=== PATIENT | male | born 1940 | race Caucasian/White ===

== ENCOUNTER 2020-05-08 13:37 | Inpatient (IN) ==
[2020-05-08] MEDS ORDERED: IOPAMIDOL 100 ML BOTTLE IV ONE (13:38)
[2020-05-08] MEDS ORDERED: LACTATED RINGERS 1,000 ML IV ONE (13:55)
[2020-05-08] MEDS ORDERED: ONDANSETRON 4 MG/2 ML VIAL IV ONE (13:55)
--- NOTE | 2020-05-08 13:59 | Emergency Department Note ---
Trauma HPI General Chief Complaint: Trauma Stated Complaint: Fall from 20 feet Time Seen by Provider: 05/08/20 13:47 Source: patient and RN notes reviewed Mode of arrival: ambulatory Limitations: no limitations History of Present Illness HPI Narrative: Narrative: This patient had a ladder up on a flag pole and he was up and about 20 feet when the ladder slipped and fell and he landed on his left side. He complains of some pain in his left shoulder left rib cage and he appears to be tender under the left rib cage so I am little concerned about a spleen. Patient is slightly diaphoretic. He says he did not hit his head or neck and he does not take a blood thinner other than a baby aspirin. No history of loss of consciousness no injury to the legs he did sustain a small skin slip to the left elbow area MD Complaint: fall and injury Onset (ago): minute(s) Loss of Consciousness: no Location: abdomen and other (Left shoulder and left rib cage) Location - Extremities: Left: shoulder Context: Fall Associated symptoms: Reports denies other symptoms Related Data Home Medications Medication Instructions Recorded Confirmed ascorbic acid (vitamin C) 500 mg 500 mg PO QDAY 11/04/15 02/05/20 tablet aspirin 81 mg chewable tablet 81 mg PO QDAY 11/04/15 02/05/20 cholecalciferol (vitamin D3) 75 3,000 unit PO QDAY 11/04/15 02/05/20 mcg (3,000 unit) tablet multivitamin 1 tab PO QDAY 06/21/18 02/05/20 vitamins A,C,B-tuak-jwkcci 14,320 1 cap PO QDAY cap 05/16/19 02/05/20 unit-226 mg-200 unit capsule Previous Rx's Medication Instructions Recorded hydrochlorothiazide 25 mg tablet 25 mg PO QDAY #90 tab 11/21/19 levothyroxine 100 mcg tablet 100 mcg PO QDAY #90 tab 11/21/19 sildenafil 100 mg tablet 100 mg PO QDAY PRN #30 tab 02/05/20 pravastatin 40 mg tablet 40 mg PO QHS #90 tab 02/28/20 Allergies Allergy/AdvReac Type Severity Reaction Status Date / Time No Known Drug Allergies Allergy Verified 05/08/20 13:40 Review of Systems ROS ROS Narrative: Narrative: All systems ED: reviewed and negative except as stated. PFSH Narrative Patient History Narrative: Narrative: Medical/Surgical/Family History All Active Problems (Updated 05/08/20 @ 16:30 by Girma Alvarado MD) Multiple fractures of ribs (Acute) Arm laceration (Acute) Colon polyp (Chronic) Pharyngitis (Acute) Abnormal TSH (Chronic) Vitamin D deficiency (Chronic) Impaired fasting glucose (Chronic) Erectile dysfunction (Chronic) Dyslipidemia (Chronic) AAA (abdominal aortic aneurysm) (Chronic) Tubular adenoma (Chronic) Epidermal inclusion cyst (Chronic) Hypothyroidism (Chronic) Shoulder pain (Chronic) Obesity (Chronic) Tobacco abuse, in remission (Chronic) Colon polyp (Chronic) Abdominal aortic aneurysm (Acute) Thyroid disease (Chronic) Hyperlipidemia (Chronic) Hypertension, essential (Chronic) Medical History (Updated 05/08/20 @ 16:30 by Girma Alvarado MD) AAA (abdominal aortic aneurysm) (Chronic) Abnormal TSH (Chronic) Colon polyp (Chronic) Colon polyp (Chronic) Dyslipidemia (Chronic) Epidermal inclusion cyst (Chronic) Erectile dysfunction (Chronic) Hyperlipidemia (Chronic) Hypertension, essential (Chronic) Hypothyroidism (Chronic) Impaired fasting glucose (Chronic) Obesity (Chronic) Shoulder pain (Chronic) Thyroid disease (Chronic) Tobacco abuse, in remission (Chronic) Tubular adenoma (Chronic) Vitamin D deficiency (Chronic) Surgical History H/O colonoscopy (Chronic) 2006, 2013 H/O knee surgery (Chronic) 1985 History of cataract extraction with lens replacement (Chronic 12/17/15) History of hernia surgery (Chronic) 1972 History of tonsillectomy (Chronic) Family History Father Arthritis Lipids abnormal Family/Other Cancer Maternal Mother Hypertension, essential Sister Cancer Social History Smoking Status: Former smoker Alcohol Intake Frequency: a few times a month Substance Use: does not use Exam Narrative Narrative: Narrative: General Limitations: no limitations Head Head: Present atraumatic, normocephalic and normal inspection Eye Eye: Present normal appearance, PERRL and EOMI; Absent scleral icterus and conjunctival injection ENT ENT: Present normal exam, normal oropharynx and mucous membranes moist Neck Neck: Present normal inspection and full ROM; Absent tenderness Chest Chest: Present normal inspection, symmetric chest wall rise and tenderness (To the left lateral rib cage) Respiratory Respiratory: Present normal lung sounds bilaterally; Absent respiratory distress, rales/crackles and wheezes Cardiovascular Cardiovascular: Present regular rate, normal rhythm and normal heart sounds Adbominal Abdominal: Present soft, tenderness and guarding; Absent distention, rebound and rigidity Expanded Abdominal Abdominal Tenderness: Present LUQ and moderate Extremities Extremities: Present normal inspection and full ROM; Absent pedal edema and pretibial edema Neurological Neurological: Present alert Psychiatric Psychiatric: Present normal affect Skin Skin: Present warm (WNL) and dry; Absent diaphoresis Course Vital Signs Vital signs: Vital Signs Temperature 96.0 F L 05/08/20 13:40 Pulse Rate 85 05/08/20 13:40 Respiratory Rate 15 05/08/20 13:40 Blood Pressure 133/85 05/08/20 13:40 Pulse Oximetry (%) 98 05/08/20 13:40 Temperature 96.0 F L 05/08/20 13:40 Pulse Rate 87 05/08/20 16:19 Respiratory Rate 19 05/08/20 16:19 Blood Pressure 128/72 05/08/20 16:16 Pulse Oximetry (%) 97 05/08/20 16:19 Procedures Laceration Laceration 1: Site: upper extremity Side (If applicable): left Description: Present linear Depth: simple, single layer Local Anesthetic: lidocaine 2% and with epi Pre-repair: irrigated extensively Skin layer closed with: nylon Size: 5-0 Number of sutures: 3 Technique: simple, interrupted MDM MDM Narrative Medical decision making narrative: Narrative: This patient was desatting off oxygen down to the low 80s and I discussed case with Dr. Cruz and we will have the hospitalist admit the patient for observation. Lab Data Result diagrams: 05/08/20 14:08 05/08/20 14:08 Labs: Lab Results 05/08/20 05/08/20 05/08/20 Range/Units 14:08 14:08 15:18 WBC 10.4 (4.5-11.0) K/mcL RBC 4.47 L (4.50-5.90) M/mcL Hgb 13.4 L (13.5-16.5) g/dL Hct 41.3 (41.0-55.0) % POC Hct 41 (41-55) % MCV 92.4 (80.0-100.0) fL MCH 30.0 (26.0-34.0) pg MCHC 32.4 (31.0-36.0) g/dL RDW 13.6 (11.5-14.5) % Plt Count 272 (140-440) K/mcL MPV 11.6 H (7.4-10.4) fL Neut % (Auto) 66.1 (38.0-78.0) % Lymph % (Auto) 22.9 (15.0-49.0) % [place] % (Auto) 9.4 (1.0-12.0) % Eos % (Auto) 1.3 (0.0-7.0) % Baso % (Auto) 0.3 (0.0-2.0) % Lymph # (Auto) 2.37 (1.50-4.80) K/mcL [place] # (Auto) 0.97 H (0.10-0.90) K/mcL Eos # (Auto) 0.13 (0.00-0.70) K/mcL Baso # (Auto) 0.03 (0.00-0.20) K/mcL Absolute Neutrophils 6.86 (1.80-8.00) K/mcL POC Sodium 141 (133-145) mEq/L Sodium 139 (133-145) mmol/L POC Potassium 3.7 (3.3-5.1) mEql/L Potassium 3.8 (3.3-5.1) mmol/L POC Chloride 103 (96-108) mEq/L Chloride 102 (96-108) mmol/L Carbon Dioxide 25 (22-30) mmol/L POC Total CO2 26 (22-30) mmol/L Anion Gap 12.0 (8.0-16.0) POC BUN 22 H (6-20) mg/dL BUN 19 (8-23) mg/dL Creatinine 1.5 H (0.7-1.2) mg/dL POC Creatinine 1.4 H (0.6-1.2) mg/dL GFR Calculation 44 Glucose 146 H (70-105) mg/dL POC Glucose 145 H (70-105) mg/dL Calcium 9.0 (8.6-10.4) mg/dL POC WB Ioniz Calcium 1.16 (1.16-1.32) mmEq/L Total Bilirubin 0.2 (0.1-1.0) mg/dL AST 21 (<40) U/L ALT 22 (<40) U/L Alkaline Phosphatase 85 (39-117) U/L Total Protein 6.7 (5.9-8.4) gm/dL Albumin 3.9 (3.2-5.2) gm/dL Globulin 2.8 (2.2-3.7) gm/dL Albumin/Globulin Ratio 1.4 (1.0-2.3) Urine Color Yellow Urine Appearance Clear (Clear) Urine pH 7.0 (5.0-9.0) Ur Specific [place] 1.042 H (1.000-1.035) Urine Protein 100 A (Negative) mg/dL Urine Glucose (UA) Negative (Negative) mg/dL Urine Ketones Negative (Negative) mg/dL Urine Occult Blood Negative (Negative) mg/dL Urine Nitrate Negative (Negative) Urine Bilirubin Negative (Negative) mg/dL Urine Urobilinogen Negative mg/dL Ur Leukocyte Esterase 75 A (Negative) /ug Urine RBC 6 H (0-3) /hpf Urine WBC 32 H (0-4) /hpf Ur Squamous Epith Cells < 1 (0-4) /hpf Urine Bacteria Few A (0) /hpf Hyaline Casts 1 (0-2) /lph Urine Mucus Few A (None) /hpf Ur Culture Indicated? yes Radiology Data Radiology results reviewed: Yes I reviewed the patient's radiology results. Radiology results narrative: This patient has nondisplaced fractures of left ribs 5,6,7. No other injuries seen on CT of head neck chest abdomen and pelvis. Discharge Plan Patient/Caregiver Discharge Instructions Pt seen by [employer]/PA only: No Clinical Impression: Multiple fractures of ribs, Arm laceration Patient Disposition: Xfer As Outpt/Obs ([facility]) Follow up with: Fede Guevara MD [Primary Care Provider] - Prescriptions: No Action hydrochlorothiazide 25 mg tablet 25 mg PO QDAY Qty: 90 RF: 1 levothyroxine 100 mcg tablet 100 mcg PO QDAY Qty: 90 RF: 1 pravastatin [Pravachol] 40 mg tablet 40 mg PO QHS Qty: 90 RF: 0 ascorbic acid (vitamin C) 500 mg tablet 500 mg PO QDAY RF: 0 aspirin 81 mg tablet,chewable 81 mg PO QDAY RF: 0 cholecalciferol (vitamin D3) 3,000 unit tablet 3,000 unit PO QDAY RF: 0 PreserVision AREDS 14,320-226-200 [id number] capsule 1 cap PO QDAY RF: 0 multivitamin tablet 1 tab PO QDAY RF: 0 sildenafil 100 mg tablet 100 mg PO QDAY PRN (Reason: sexual activity) Qty: 30 RF: 0
[2020-05-08 14:19] LABS: POC Blood Urea Nitrogen 22 mg/dL (6-20); POC CO2 26 mmol/L (22-30); POC Calcium, Ionized 1.16 mmEq/L (1.16-1.32); POC Chloride 103 mEq/L (96-108); POC Creatinine 1.4 mg/dL (0.6-1.2); POC Glucose, Random 145 mg/dL (70-105); POC Hematocrit 41 % (41-55); POC Potassium 3.7 mEql/L (3.3-5.1); POC Sodium 141 mEq/L (133-145)
[2020-05-08] MEDS: HYDROmorphone 0.5 MG/0.5 ML SYRINGE IV PRN ×2 (14:39→16:55)
[2020-05-08 14:54] LABS: Basophils # (Auto) 0.03 K/mcL (0.00-0.20); Basophils % (Auto) 0.3 % (0.0-2.0); Eosinophils # (Auto) 0.13 K/mcL (0.00-0.70); Eosinophils % (Auto) 1.3 % (0.0-7.0); Hematocrit 41.3 % (41.0-55.0); Hemoglobin 13.4 g/dL (13.5-16.5); Lymphocytes # (Auto) 2.37 K/mcL (1.50-4.80); Lymphocytes % (Auto) 22.9 % (15.0-49.0); Mean Cell Volume 92.4 fL (80.0-100.0); Mean Corpuscular HGB Conc 32.4 g/dL (31.0-36.0); Mean Platelet Volume 11.6 fL (7.4-10.4); Monocytes # (Auto) 0.97 K/mcL (0.10-0.90); Monocytes % (Auto) 9.4 % (1.0-12.0); Neutrophils % (Auto) 66.1 % (38.0-78.0); Platelet Count 272 K/mcL (140-440); RBC 4.47 M/mcL (4.50-5.90); Red Cell Distribution Width 13.6 % (11.5-14.5); WBC 10.4 K/mcL (4.5-11.0)
--- NOTE | 2020-05-08 14:55 | Cat Scan Report ---
CLINICAL INFORMATION: Trauma COMPARISON: None. TECHNIQUE: 0.625 mm helical slices were obtained from the skull base through the superior T2 end plate, and following reconstruction, 2.5 mm sagittal, coronal and axial reformations were then processed. The exam was reviewed at bone and soft tissue windows. The exam was performed using radiation dose optimization techniques including, but not limited to, automated exposure control, adjustment of the mA and/or kV according to patient size and use of iterative reconstruction technique. FINDINGS: Sagittal reformatted images show the cervical spine is anatomically aligned. There is no fracture or other significant osseous abnormality. The cervical cord is normal in contour and caliber without hemorrhage or other abnormality. Calcification of stylohyoid ligament noted bilaterally. No other soft tissue abnormality. The C2-3, C3-4 and C4-5 disc levels are normal. At C5-6, moderate broad disc spur complex with left-sided asymmetry results in mild central canal and moderate left lateral recess narrowing. At C6-7, mild broad disc protrusion mildly impinges the anterior thecal sac C7-T1 disc is normal. IMPRESSION: 1. No acute fracture or other posttraumatic change. 2. Mild degeneration Interpreted and Authenticated by: Josiah Lucas 05/08/20
--- NOTE | 2020-05-08 14:56 | Cat Scan Report ---
CLINICAL INFORMATION: Trauma COMPARISON: None. TECHNIQUE: 2.5 mm helical slices were obtained in the skull base to vertex. Following reconstruction, axial reformatted images were reviewed at bone and parenchymal windows. The exam was performed using radiation dose optimization techniques including, but not limited to, automated exposure control, adjustment of the mA and/or kV according to patient size and use of iterative reconstruction technique. FINDINGS: The ventricles, sulci, fissures, and cisterns are normal in size and configuration for age. No extra-axial fluid collections are identified. The cerebrum, brainstem and cerebellum are unremarkable. There is no evidence of hemorrhage, mass effect, or edema. Bone windows show no osseous abnormality. IMPRESSION: Normal head CT without contrast for age Interpreted and Authenticated by: Josiah Lucas 05/08/20
[2020-05-08 15:18] LABS: ALT/SGPT 22 U/L (<40); AST/SGOT 21 U/L (<40); Albumin 3.9 gm/dL (3.2-5.2); Albumin/Globulin Ratio 1.4 (1.0-2.3); Alkaline Phosphatase 85 U/L (39-117); Bilirubin,Total 0.2 mg/dL (0.1-1.0); Blood Urea Nitrogen 19 mg/dL (8-23); Carbon Dioxide 25 mmol/L (22-30); Chloride 102 mmol/L (96-108); Globulin 2.8 gm/dL (2.2-3.7); Glomerular Filtration Rate 44; Glucose 146 mg/dL (70-105)
--- NOTE | 2020-05-08 15:39 | Cat Scan Report ---
CLINICAL INFORMATION: Trauma COMPARISON: None. TECHNIQUE: 80 cc of Isovue-370 were injected intravenously, and 50 seconds later 2.5 mm helical slices were obtained from the lung apices through the subtrochanteric regions of the femurs. Following reconstruction, 2.5 mm sagittal, coronal and axial reformatted images were processed and reviewed at multiple windows and levels. 7 mm MIP reconstructions were obtained through the lungs to optimize nodule detection.The exam was performed using radiation dose optimization techniques including, but not limited to, automated exposure control, adjustment of the mA and/or kV according to patient size and use of iterative reconstruction technique. FINDINGS: Pulmonary parenchymal windows show a 9 mm pleural based nodule in the right middle lobe on image 65. This is compatible with a benign subpulmonic lymph node. Minimal atelectasis is seen in both lower lobes - lungs otherwise clear. There is no evidence of pleural effusion or pneumothorax. The mediastinal windows show the heart is mildly enlarged with scattered calcific plaque in the coronary arteries. The thoracic aorta and pulmonary arteries are well-opacified and normal in contour and caliber. There is no adenopathy or hemorrhage within the mediastinal, hilar or axillary region. Small hiatal hernia is noted. Thyroid is diminutive, but no focal lesion appreciated. Abdominal images show the gallbladder and bile ducts, liver, both kidneys, adrenal glands spleen are normal. The pancreas is moderately atrophic with parenchymal fat replacement. There is mild ectasia of the infrarenal abdominal aorta with diameter 2.7 cm. Scattered chronic plaque seen in the abdominal aorta and branches but no significant stenoses. Pelvic images show mild prostate enlargement: 4.5 x 4.1 cm. Mild diffuse wall thickening urinary bladder suggestive of chronic bladder outlet narrowing. The stomach, small bowel, appendix region and large bowel are normal. Small periumbilical hernia contains only mesenteric fat. Bone windows show minimally displaced acute fractures the lateral left fifth sixth and seventh ribs. No other fractures seen throughout the chest abdomen or pelvis. IMPRESSION: 1. Acute minimally displaced fractures of the lateral left fifth sixth and seventh ribs. No other acute posttraumatic change throughout the chest, abdomen or pelvis. 2. Mild cardiomegaly. 3. Moderate atrophy of the pancreas with fat replacement. This could potentially result in malabsorption syndrome. 4. Ectasia of the infrarenal abdominal aorta diameter 2.7 cm. Suggest abdominal aortic ultrasound in one year. 5. Mild prostate enlargement with wall thickening urinary bladder compatible with chronic bladder outlet narrowing. 6. Small periumbilical hernia containing mesenteric fat. 7. Small hiatal hernia 8. Chronic bilateral L5-S1 spondylolysis with grade 1 spondylolisthesis and moderate IV foraminal narrowing. There is impingement of the exiting right L5 nerve root. 9. Diminutive thyroid consider TSH correlation to evaluate for hypothyroidism. Interpreted and Authenticated by: Josiah Lucas 05/08/20
[2020-05-08 16:13] LABS: Appearance,Urine CLEAR (Clear); Bacteria,Urine FEW /hpf (0); Bilirubin,Urine Negative (Negative); Color,Urine YELLOW; Culture Indicated,Urine yes; Glucose,Urine (UA) Negative (Negative); Ketones,Urine Negative (Negative); Leukocyte Esterase,Urine 75 /ug (Negative); Mucus,Urine FEW /hpf; Nitrate,Urine Negative (Negative); Protein,Urine 100 mg/dL (Negative); Specific Gravity,Urine 1.042 (1.000-1.035); Urine Blood Negative (Negative); Urine Hyaline Cast 1 /lph (0-2); Urine RBC 6 /hpf (0-3); Urine Squamous Epithelial Cell < 1 /hpf (0-4); Urine WBC 32 /hpf (0-4); Urobilinogen,Urine Negative
[2020-05-08] MEDS ORDERED: NITROFURANTOIN SR 100 MG CAPSULE PO ONE (16:27)
--- NOTE | 2020-05-08 16:45 | Internal Med History&Physical ---
HPI History of Present Illness Patient information: Note initiated : 05/08/20 at 4:37 pm Service Date, if different from initiated Date: [] Patient: Sandie Birch a 79 y/o M admitted on for Fall from 20 feet. Chief Complaint: [] History of present illness: Mr. 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 Work-up in the ED included head CT cervical spine CT chest abdomen pelvis. Only remarkable for fractures of the left fifth sixth and seventh ribs. He has pleuritic chest pain and is breathing shallow and because of the pain and shallow breaths he was hypoxic on room air. Case discussed with Dr. Cruz as well will follow. Dr. Cruz did suture up the laceration. Review of Systems: Pertinent positives as above. Denies headache/fever/chills/nausea/vomiting/chest or abdominal pain/cough/diarrhea. Remaining 10 point review of system reviewed negative PFSH PFSH All Active Problems (Updated 05/08/20 @ 16:30 by Girma Alvarado MD) Multiple fractures of ribs (Acute) Arm laceration (Acute) Colon polyp (Chronic) Pharyngitis (Acute) Abnormal TSH (Chronic) Vitamin D deficiency (Chronic) Impaired fasting glucose (Chronic) Erectile dysfunction (Chronic) Dyslipidemia (Chronic) AAA (abdominal aortic aneurysm) (Chronic) Tubular adenoma (Chronic) Epidermal inclusion cyst (Chronic) Hypothyroidism (Chronic) Shoulder pain (Chronic) Obesity (Chronic) Tobacco abuse, in remission (Chronic) Colon polyp (Chronic) Abdominal aortic aneurysm (Acute) Thyroid disease (Chronic) Hyperlipidemia (Chronic) Hypertension, essential (Chronic) Medical History (Updated 05/08/20 @ 16:30 by Girma Alvarado MD) AAA (abdominal aortic aneurysm) (Chronic) Abnormal TSH (Chronic) Colon polyp (Chronic) Colon polyp (Chronic) Dyslipidemia (Chronic) Epidermal inclusion cyst (Chronic) Erectile dysfunction (Chronic) Hyperlipidemia (Chronic) Hypertension, essential (Chronic) Hypothyroidism (Chronic) Impaired fasting glucose (Chronic) Obesity (Chronic) Shoulder pain (Chronic) Thyroid disease (Chronic) Tobacco abuse, in remission (Chronic) Tubular adenoma (Chronic) Vitamin D deficiency (Chronic) Surgical History H/O colonoscopy (Chronic) 2013 H/O knee surgery (Chronic) 1985 History of cataract extraction with lens replacement (Chronic 12/17/15) History of hernia surgery (Chronic) 1971 History of tonsillectomy (Chronic) Family History Father Arthritis Lipids abnormal Family/Other Cancer Maternal Mother Hypertension, essential Sister Cancer Social History marital status: smoking status: Former smoker alcohol intake frequency: a few times a month substance use type: does not use MEDS/ALLERGIES Home Medications and Allergies Home Medications Medication Instructions Recorded Confirmed Type ascorbic acid (vitamin C) 500 mg 500 mg PO QDAY 11/04/15 02/05/20 History tablet aspirin 81 mg chewable tablet 81 mg PO QDAY 11/04/15 02/05/20 History cholecalciferol (vitamin D3) 75 3,000 unit PO QDAY 11/04/15 02/05/20 History mcg (3,000 unit) tablet multivitamin 1 tab PO QDAY 06/21/18 02/05/20 History vitamins A,C,O-ruai-stozkd 14,320 1 cap PO QDAY cap 05/16/19 02/05/20 History unit-226 mg-200 unit capsule hydrochlorothiazide 25 mg tablet 25 mg PO QDAY #90 tab 11/21/19 02/05/20 Rx levothyroxine 100 mcg tablet 100 mcg PO QDAY #90 tab 11/21/19 02/05/20 Rx sildenafil 100 mg tablet 100 mg PO QDAY PRN #30 tab 02/05/20 02/05/20 Rx pravastatin 40 mg tablet 40 mg PO QHS #90 tab 02/28/20 Rx Allergies Allergy/AdvReac Type Severity Reaction Status Date / Time No Known Drug Allergies Allergy Verified 05/08/20 13:40 EXAM Constitutional Vitals: Temp Pulse Resp BP Pulse Ox 96.0 F L 86 16 129/81 98 05/08/20 13:40 05/08/20 16:31 05/08/20 16:31 05/08/20 16:31 05/08/20 16:31 Exam: General: Alert, Awake, No acute Distress Eyes/N/T: EOMI, PERRL, Head/Neck: neck supple, normocephalic atraumatic CV: RRR, No murmurs, normal s1/s2 Pulm: Clear b/l, no wheezing/rhonchi/rales Abd: soft, nontender, +BS x4 Ext: no clubbing/cyanosis/edema Neuro: Alert, no focal deficits, moves all extremities, CN 2-12 grossly intact, symmetrical strength b/l upper/lower, sensations intact b/l upper/lower Skin: warm/dry DATA Data Completed and Pending Labs: Labs from last 24 hours 05/08/20 05/08/20 05/08/20 15:18 14:08 14:08 WBC RBC Hgb Hct POC Hct 41 MCV MCH MCHC RDW Plt Count MPV Neut % (Auto) Lymph % (Auto) [facility] % (Auto) Eos % (Auto) Baso % (Auto) Lymph # (Auto) [facility] # (Auto) Eos # (Auto) Baso # (Auto) Absolute Neutrophils POC Sodium 141 Sodium 139 POC Potassium 3.7 Potassium 3.8 POC Chloride 103 Chloride 102 Carbon Dioxide 25 POC Total CO2 26 Anion Gap 12.0 POC BUN 22 H BUN 19 Creatinine 1.5 H POC Creatinine 1.4 H GFR Calculation 44 Glucose 146 H POC Glucose 145 H Calcium 9.0 POC WB Ioniz Calcium 1.16 Total Bilirubin 0.2 AST 21 ALT 22 Alkaline Phosphatase 85 Total Protein 6.7 Albumin 3.9 Globulin 2.8 Albumin/Globulin Ratio 1.4 TSH Pending Urine Color Yellow Urine Appearance Clear Urine pH 7.0 Ur Specific [place] 1.042 H Urine Protein 100 A Urine Glucose (UA) Negative Urine Ketones Negative Urine Occult Blood Negative Urine Nitrate Negative Urine Bilirubin Negative Urine Urobilinogen Negative Ur Leukocyte Esterase 75 A Urine RBC 6 H Urine WBC 32 H Ur Squamous Epith Cells < 1 Urine Bacteria Few A Hyaline Casts 1 Urine Mucus Few A Ur Culture Indicated? yes 05/08/20 14:08 WBC 10.4 RBC 4.47 L Hgb 13.4 L Hct 41.3 POC Hct MCV 92.4 MCH 30.0 MCHC 32.4 RDW 13.6 Plt Count 272 MPV 11.6 H Neut % (Auto) 66.1 Lymph % (Auto) 22.9 [facility] % (Auto) 9.4 Eos % (Auto) 1.3 Baso % (Auto) 0.3 Lymph # (Auto) 2.37 [facility] # (Auto) 0.97 H Eos # (Auto) 0.13 Baso # (Auto) 0.03 Absolute Neutrophils 6.86 POC Sodium Sodium POC Potassium Potassium POC Chloride Chloride Carbon Dioxide POC Total CO2 Anion Gap POC BUN BUN Creatinine POC Creatinine GFR Calculation Glucose POC Glucose Calcium POC WB Ioniz Calcium Total Bilirubin AST ALT Alkaline Phosphatase Total Protein Albumin Globulin Albumin/Globulin Ratio TSH Urine Color Urine Appearance Urine pH Ur Specific [place] Urine Protein Urine Glucose (UA) Urine Ketones Urine Occult Blood Urine Nitrate Urine Bilirubin Urine Urobilinogen Ur Leukocyte Esterase Urine RBC Urine WBC Ur Squamous Epith Cells Urine Bacteria Hyaline Casts Urine Mucus Ur Culture Indicated? A/P Narrative A/P Narrative: A: *Trauma, fall off ladder: -CT head/chest/a/p no acute other than rib fx. 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
[2020-05-08] MEDS ORDERED: POTASSIUM CHLORIDE 40 MEQ in DEXTROSE 5% IN WATER 500 ML IV PRN (17:06)
[2020-05-08] MEDS ORDERED: ONDANSETRON 4 MG/2 ML VIAL IV PRN (17:06)
[2020-05-08] MEDS ORDERED: ACETAMINOPHEN 325 MG TABLET PO PRN (17:06)
[2020-05-08] MEDS ORDERED: POTASSIUM CHLORIDE 20 MEQ TABLET PO PRN ×2 (17:06)
[2020-05-08] MEDS ORDERED: MAGNESIUM SULFATE 2 GM/50 ML BAG IV PRN (17:06)
[2020-05-08] MEDS ORDERED: cefTRIAXone 1 GM in DEXTROSE 5% IN WATER 50 ML IV SCH (17:06)
[2020-05-08] MEDS ORDERED: LACTULOSE 20 GM/30 ML ORAL.SOL PO PRN (17:06)
[2020-05-08] MEDS ORDERED: IPRATROPIUM/ALBUTEROL 3 ML AMPUL.NEB NEB PRN (17:06)
[2020-05-08] MEDS ORDERED: SENNOSIDES 1 TABLET PO PRN (17:06)
[2020-05-08] MEDS ORDERED: 0.9 % SODIUM CHLORIDE 1,000 ML IV SCH (17:06)
--- NOTE | 2020-05-08 18:01 | General Surgery Consult Note ---
HPI Data of Consult Primary Care Provider: Fede Guevara MD Consult Narrative Patient Information: Note initiated : 05/08/20 at 6:01 pm Service Date, if different from initiated Date: [] Patient: Sandie Birch 79 y/o M admitted on 05/08/20 for Fall from 20 feet. Chief Complaint: [] cc:: CC: John Mendenhall [facility] All Active Problems (Updated 05/08/20 @ 16:30 by Girma Alvarado MD) Multiple fractures of ribs (Acute) Arm laceration (Acute) Colon polyp (Chronic) Pharyngitis (Acute) Abnormal TSH (Chronic) Vitamin D deficiency (Chronic) Impaired fasting glucose (Chronic) Erectile dysfunction (Chronic) Dyslipidemia (Chronic) AAA (abdominal aortic aneurysm) (Chronic) Tubular adenoma (Chronic) Epidermal inclusion cyst (Chronic) Hypothyroidism (Chronic) Shoulder pain (Chronic) Obesity (Chronic) Tobacco abuse, in remission (Chronic) Colon polyp (Chronic) Abdominal aortic aneurysm (Acute) Thyroid disease (Chronic) Hyperlipidemia (Chronic) Hypertension, essential (Chronic) Medical History (Updated 05/08/20 @ 16:30 by Girma Alvarado MD) AAA (abdominal aortic aneurysm) (Chronic) Abnormal TSH (Chronic) Colon polyp (Chronic) Colon polyp (Chronic) Dyslipidemia (Chronic) Epidermal inclusion cyst (Chronic) Erectile dysfunction (Chronic) Hyperlipidemia (Chronic) Hypertension, essential (Chronic) Hypothyroidism (Chronic) Impaired fasting glucose (Chronic) Obesity (Chronic) Shoulder pain (Chronic) Thyroid disease (Chronic) Tobacco abuse, in remission (Chronic) Tubular adenoma (Chronic) Vitamin D deficiency (Chronic) Surgical History H/O colonoscopy (Chronic) 2006, 2013 H/O knee surgery (Chronic) 1985 History of cataract extraction with lens replacement (Chronic 12/17/15) History of hernia surgery (Chronic) 1972 History of tonsillectomy (Chronic) Family History Father Arthritis Lipids abnormal Family/Other Cancer Maternal Mother Hypertension, essential Sister Cancer Social History marital status: smoking status: Former smoker alcohol intake frequency: a few times a month substance use type: does not use MEDS/ALLERGIES Home Medications and Allergies Home Medications Medication Instructions Recorded Confirmed Type ascorbic acid (vitamin C) 500 mg 500 mg PO QDAY 11/04/15 05/08/20 History tablet aspirin 81 mg chewable tablet 81 mg PO QDAY 11/04/15 05/08/20 History cholecalciferol (vitamin D3) 75 3,000 unit PO QDAY 11/04/15 05/08/20 History mcg (3,000 unit) tablet multivitamin 1 tab PO QDAY 06/21/18 05/08/20 History vitamins A,C,M-enqv-yenxlc 14,320 1 cap PO QDAY cap 05/16/19 05/08/20 History unit-226 mg-200 unit capsule hydrochlorothiazide 25 mg tablet 25 mg PO QDAY #90 tab 11/21/19 05/08/20 Rx levothyroxine 100 mcg tablet 100 mcg PO QDAY #90 tab 11/21/19 05/08/20 Rx sildenafil 100 mg tablet 100 mg PO QDAY PRN #30 tab 02/05/20 02/05/20 Rx pravastatin 40 mg tablet 40 mg PO QHS #90 tab 02/28/20 05/08/20 Rx Allergies Allergy/AdvReac Type Severity Reaction Status Date / Time No Known Drug Allergies Allergy Verified 05/08/20 13:40 Physical Examination Vital Signs Vital signs: Temp Pulse Resp BP Pulse Ox 97.2 F 89 14 126/77 98 05/08/20 17:06 05/08/20 17:11 05/08/20 17:11 05/08/20 17:06 05/08/20 17:11 Results Labs Result diagrams: 05/08/20 14:08 05/08/20 14:08 Labs: Abnormal lab results 05/08/20 05/08/20 05/08/20 Range/Units 14:08 14:08 14:08 RBC 4.47 L (4.50-5.90) M/mcL Hgb 13.4 L (13.5-16.5) g/dL MPV 11.6 H (7.4-10.4) fL [place] # (Auto) 0.97 H (0.10-0.90) K/mcL POC BUN 22 H (6-20) mg/dL Creatinine 1.5 H (0.7-1.2) mg/dL POC Creatinine 1.4 H (0.6-1.2) mg/dL Glucose 146 H (70-105) mg/dL POC Glucose 145 H (70-105) mg/dL TSH 6.44 H (0.27-5.01) uIU/mL Ur Specific [place] (1.000-1.035) Urine Protein (Negative) mg/dL Ur Leukocyte Esterase (Negative) /ug Urine RBC (0-3) /hpf Urine WBC (0-4) /hpf Urine Bacteria (0) /hpf Urine Mucus (None) /hpf 05/08/20 Range/Units 15:18 RBC (4.50-5.90) M/mcL Hgb (13.5-16.5) g/dL MPV (7.4-10.4) fL [place] # (Auto) (0.10-0.90) K/mcL POC BUN (6-20) mg/dL Creatinine (0.7-1.2) mg/dL POC Creatinine (0.6-1.2) mg/dL Glucose (70-105) mg/dL POC Glucose (70-105) mg/dL TSH (0.27-5.01) uIU/mL Ur Specific [place] 1.042 H (1.000-1.035) Urine Protein 100 A (Negative) mg/dL Ur Leukocyte Esterase 75 A (Negative) /ug Urine RBC 6 H (0-3) /hpf Urine WBC 32 H (0-4) /hpf Urine Bacteria Few A (0) /hpf Urine Mucus Few A (None) /hpf Diabetes panel 05/08/20 Range/Units 14:08 Sodium 139 (133-145) mmol/L Potassium 3.8 (3.3-5.1) mmol/L Chloride 102 (96-108) mmol/L Carbon Dioxide 25 (22-30) mmol/L BUN 19 (8-23) mg/dL Creatinine 1.5 H (0.7-1.2) mg/dL Glucose 146 H (70-105) mg/dL Calcium 9.0 (8.6-10.4) mg/dL AST 21 (<40) U/L ALT 22 (<40) U/L Alkaline Phosphatase 85 (39-117) U/L Total Protein 6.7 (5.9-8.4) gm/dL Albumin 3.9 (3.2-5.2) gm/dL Thyroid panel 05/08/20 Range/Units 14:08 TSH 6.44 H (0.27-5.01) uIU/mL Calcium panel 05/08/20 Range/Units 14:08 Calcium 9.0 (8.6-10.4) mg/dL Albumin 3.9 (3.2-5.2) gm/dL Pituitary panel 05/08/20 05/08/20 Range/Units 14:08 14:08 Sodium 139 (133-145) mmol/L Potassium 3.8 (3.3-5.1) mmol/L Chloride 102 (96-108) mmol/L Carbon Dioxide 25 (22-30) mmol/L BUN 19 (8-23) mg/dL Creatinine 1.5 H (0.7-1.2) mg/dL Glucose 146 H (70-105) mg/dL Calcium 9.0 (8.6-10.4) mg/dL TSH 6.44 H (0.27-5.01) uIU/mL Adrenal panel 05/08/20 Range/Units 14:08 Sodium 139 (133-145) mmol/L Potassium 3.8 (3.3-5.1) mmol/L Chloride 102 (96-108) mmol/L Carbon Dioxide 25 (22-30) mmol/L BUN 19 (8-23) mg/dL Creatinine 1.5 H (0.7-1.2) mg/dL Glucose 146 H (70-105) mg/dL Calcium 9.0 (8.6-10.4) mg/dL Total Bilirubin 0.2 (0.1-1.0) mg/dL AST 21 (<40) U/L ALT 22 (<40) U/L Alkaline Phosphatase 85 (39-117) U/L Total Protein 6.7 (5.9-8.4) gm/dL Albumin 3.9 (3.2-5.2) gm/dL All other labs normal. A/P Time Spent With Patient Time: Total time spent is greater than 50% in coordination of care (as documented) at patient's floor/unit and/or counseling patient:
[2020-05-08] MEDS: cefTRIAXone 1 GM VIAL IV SCH (18:47)
[2020-05-08 19:43] LABS: Basophils # (Auto) 0.03 K/mcL (0.00-0.20); Basophils % (Auto) 0.1 % (0.0-2.0); Eosinophils # (Auto) 0 K/mcL (0.00-0.70); Eosinophils % (Auto) 0 % (0.0-7.0); Hematocrit 42.9 % (41.0-55.0); Hemoglobin 13.6 g/dL (13.5-16.5); Lymphocytes % (Auto) 6.1 % (15.0-49.0); Mean Cell Volume 94.5 fL (80.0-100.0); Mean Corpuscular HGB Conc 31.7 g/dL (31.0-36.0); Mean Platelet Volume 11.6 fL (7.4-10.4); Monocytes # (Auto) 1.98 K/mcL (0.10-0.90); Monocytes % (Auto) 9.3 % (1.0-12.0); Neutrophils % (Auto) 84.5 % (38.0-78.0); Platelet Count 270 K/mcL (140-440); RBC 4.54 M/mcL (4.50-5.90); Red Cell Distribution Width 13.9 % (11.5-14.5); WBC 21.4 K/mcL (4.5-11.0)
[2020-05-08] MEDS: DOCUSATE SODIUM 100 MG CAPSULE PO SCH (20:25)
[2020-05-08] MEDS: 0.9 % SODIUM CHLORIDE 10 ML SYRINGE IV SCH (20:26)
[2020-05-08] MEDS: oxyCODONE/APAP 5/325MG TABLET PO PRN (20:29)
[2020-05-09] MEDS: oxyCODONE/APAP 5/325MG TABLET PO PRN ×3 (01:07→20:50)
[2020-05-09] MEDS: 0.9 % SODIUM CHLORIDE 10 ML SYRINGE IV SCH ×3 (05:41→20:52)
[2020-05-09 08:06] LABS: Hematocrit 38.2 % (41.0-55.0); Hemoglobin 12.2 g/dL (13.5-16.5); Mean Cell Volume 94.1 fL (80.0-100.0); Mean Corpuscular HGB Conc 31.9 g/dL (31.0-36.0); Mean Platelet Volume 11.8 fL (7.4-10.4); Platelet Count 216 K/mcL (140-440); RBC 4.06 M/mcL (4.50-5.90); Red Cell Distribution Width 14.1 % (11.5-14.5); WBC 10.8 K/mcL (4.5-11.0)
[2020-05-09] MEDS: DOCUSATE SODIUM 100 MG CAPSULE PO SCH ×2 (08:06→20:53)
--- NOTE | 2020-05-09 08:06 | Internal Med Progress Note ---
SUBJECTIVE Subjective Patient information: Note initiated : 05/09/20 at 8:04 am Service Date, if different from initiated Date: [] Patient: Sandie Birch a 79 y/o M admitted on 05/08/20 for Fall from 20 feet. Chief Complaint: [] Interval history: History of present illness: Mr. 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 Work-up in the ED included head CT cervical spine CT chest abdomen pelvis. Only remarkable for fractures of the left fifth sixth and seventh ribs. He has pleuritic chest pain and is breathing shallow and because of the pain and shallow breaths he was hypoxic on room air. Case discussed with Dr. Cruz as well will follow. Dr. Cruz did suture up the laceration. 05/09 felling a bit better today. mild dyspnea, no diarrhea. Review of Systems: denies headache/fever/chills/nausea/vomiting/chest or abdominal pain//diarrhea. Otherwise see above. Constitutional Vitals: Vital Signs Temp Pulse Resp BP Pulse Ox 97.2 F 87 18 131/79 94 05/09/20 06:50 05/09/20 06:50 05/09/20 06:50 05/09/20 06:50 05/09/20 06:50 Period Temp Pulse Resp BP Sys/Poe Pulse Ox Last 24 Hr 96.0 F-98.1 F 71-97 12-20 81-144/57-85 83-99 Intake and Output 05/08/20 05/09/20 05/09/20 21:59 05:59 13:59 Intake Total 1000 800 Output Total 200 Balance 1000 600 Weight 90.31 kg Intake & Output: Intake & Output 05/08/20 05/09/20 05/09/20 21:59 05:59 13:59 Intake Total 1000 800 Output Total 200 Balance 1000 600 Weight 90.31 kg Intake: IV 1000 Lactated Ringers 1,000 ml @ 1000 Wide Open IV BOLUS ONE Rx#: [id number] Oral 800 Output: Void Amount 200 Other: Meal Dinner Percent of Meal Consumed 75% Feeding Ability Independent Urine Appearance Clear Urine Color Dark Yellow Exam: General: Alert, Awake, No acute Distress Eyes/N/T: EOMI, Head/Neck: neck supple, CV: RRR, No murmurs, Pulm: Clear b/l, no wheezing/rhonchi/rales Abd: soft, nontender, +BS x4 Ext: no clubbing/cyanosis/edema Neuro: Alert, no focal deficits, moves all extremities Skin: warm/dry OBJ DATA Labs CBC & Chem 7: 05/09/20 05:30 05/09/20 05:30 Labs: Abnormal Lab Results 05/08/20 05/08/20 05/08/20 18:07 15:18 14:08 WBC 21.4 H RBC Hgb MPV 11.6 H Neut % (Auto) 84.5 H Lymph % (Auto) 6.1 L Lymph # (Auto) 1.30 L [place] # (Auto) 1.98 H Absolute Neutrophils 18.05 H POC BUN Creatinine POC Creatinine Glucose POC Glucose TSH 6.44 H Ur Specific [place] 1.042 H Urine Protein 100 A Ur Leukocyte Esterase 75 A Urine RBC 6 H Urine WBC 32 H Urine Bacteria Few A Urine Mucus Few A 05/08/20 05/08/20 14:08 14:08 WBC RBC 4.47 L Hgb 13.4 L MPV 11.6 H Neut % (Auto) Lymph % (Auto) Lymph # (Auto) [place] # (Auto) 0.97 H Absolute Neutrophils POC BUN 22 H Creatinine 1.5 H POC Creatinine 1.4 H Glucose 146 H POC Glucose 145 H TSH Ur Specific [place] Urine Protein Ur Leukocyte Esterase Urine RBC Urine WBC Urine Bacteria Urine Mucus Meds: Medications Acetaminophen (Tylenol) 650 mg PO Q6HP PRN PRN Reason: PAIN/FEVER > 101 Albuterol/Ipratropium (Duoneb) 3 ml NEB Q4HP PRN PRN Reason: Shortness Of Breath Ceftriaxone Sodium (Rocephin) 1 gm IV DAILY [facility] TO [facility] Last Admin: 05/08/20 18:47 Dose: 1 gm Documented by: Docusate Sodium (Colace) 100 mg PO BID [facility] Last Admin: 05/08/20 20:25 Dose: Not Given Documented by: Potassium Chloride 40 meq/ (Dextrose) 520 mls @ 130 mls/hr IV UD PRN PRN Reason: Potassium < 3 Magnesium Sulfate (Magnesium Sulfate) 2 gm in 50 mls @ 50 mls/hr IV UD PRN PRN Reason: Magnesium </= 1.6 Lactulose (Cephulac) 20 gm PO DAILYP PRN PRN Reason: Constipation Lidocaine (Lidoderm) 1 patch TOPICAL DAILY@1000 [facility] Ondansetron HCl (Zofran) 4 mg IV Q4HP PRN PRN Reason: Nausea And Vomiting Oxycodone/Acetaminophen (Percocet 5-325 Mg) 1 tab PO Q4HP PRN PRN Reason: PAIN LEVEL 3-6 Last Admin: 05/09/20 05:34 Dose: 1 tab Documented by: Polyethylene Glycol (Miralax) 17 gm PO DAILYP PRN PRN Reason: Constipation Potassium Chloride (Kdur) 40 meq PO UD PRN PRN Reason: Potssium is 3-3.5 Potassium Chloride (Kdur) 40 meq PO UD PRN PRN Reason: Potassium < 3 Senna (Senokot) 2 tab PO DAILYP PRN PRN Reason: Constipation Sodium Chloride (Saline Flush) 10 ml IV Q8 [facility] Last Admin: 05/09/20 05:41 Dose: Not Given Documented by: A/P Narrative A/P Narrative: A: *Trauma, fall off ladder: -CT head/chest/a/p no acute other than rib fx. 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 Suggest abdominal aortic ultrasound in one year." -ppx: SCD (hold chemical for now due to trauma) full code Time Spent With Patient Time: Total time spent is greater than 50% in coordination of care (as documented) at patient's floor/unit and/or counseling patient: QUALITY VTE Deep Vein Thrombosis/Pulmonary Embolism Present on Admission: No
[2020-05-09 08:10] LABS: ALT/SGPT 26 U/L (<40); AST/SGOT 66 U/L (<40); Albumin 3.5 gm/dL (3.2-5.2); Albumin/Globulin Ratio 1.3 (1.0-2.3); Alkaline Phosphatase 75 U/L (39-117); Bilirubin,Direct < 0.2 mg/dL (<0.3); Bilirubin,Total 0.4 mg/dL (0.1-1.0); Blood Urea Nitrogen 19 mg/dL (8-23); Calcium 8.6 mg/dL (8.6-10.4); Carbon Dioxide 27 mmol/L (22-30); Chloride 99 mmol/L (96-108); Globulin 2.6 gm/dL (2.2-3.7); Glomerular Filtration Rate 71; Glucose 122 mg/dL (70-105); Lactate Dehydrogenase 252 U/L (135-225); Phosphorous 3.8 mg/dL (2.5-4.5); Triglycerides 66 mg/dL (<150); Uric Acid 6.8 mg/dL (2.5-8.0)
[2020-05-09 08:49] LABS: Band Neutrophils % 5 % (0-10); Lymphocytes % 14 % (15-49); Monocytes % (Manual) 12 % (1-12); Platelet Estimate NORMAL (Normal); Polychromasia RARE (None Seen); RBC Fragments RARE (None Seen); RBC Morphology ABNORMAL (Normal); Segmented Neutrophils % 69 % (38-78)
[2020-05-09] MEDS ORDERED: KETOROLAC 15 MG/ML VIAL IV ONE (08:58)
[2020-05-09] MEDS: cefTRIAXone 1 GM VIAL IV SCH (09:12)
[2020-05-09] MEDS: LIDOCAINE PATCH TOPICAL SCH (09:22)
--- NOTE | 2020-05-09 10:18 | XRay Report ---
CLINICAL INFORMATION: fall, pain COMPARISON: None. FINDINGS: No fracture identified. Mild acromioclavicular degeneration noted. Glenohumeral joint is normal. Soft tissues are unremarkable. IMPRESSION: No fracture. Mild acromioclavicular degeneration Interpreted and Authenticated by: Josiah Lucas 05/09/20
--- NOTE | 2020-05-09 10:38 | XRay Report ---
CLINICAL INFORMATION: hypoxia COMPARISON: 08/02/2016 FINDINGS: Heart size, mediastinum and pulmonary vessels are normal. Small left pleural effusion with compressive atelectasis left base appreciated. Tiny right pleural effusion also noted. IMPRESSION: Small left pleural effusion with compressive atelectasis in left base. Tiny right pleural effusion. Interpreted and Authenticated by: Josiah Lucas 05/09/20
[2020-05-09 12:32] LABS: Partial Thromboplastin Time 30.8 sec (20.0-37.0); Prothrombin Time 13.7 sec (11.9-14.5)
--- NOTE | 2020-05-09 13:17 | Ultrasound Report ---
CLINICAL INFORMATION: effusion COMPARISON: None. FINDINGS: Small left pleural effusion is present. IMPRESSION: Small left pleural effusion. This is inadequate volume for safe thoracentesis performance. Thoracentesis canceled Interpreted and Authenticated by: Josiah Lucas 05/09/20
[2020-05-09] MEDS ORDERED: KETOROLAC 15 MG/ML VIAL IV PRN (17:00)
[2020-05-09] MEDS: POLYETHYLENE GLYCOL 3350 17 GM PACKET PO PRN (20:50)
[2020-05-10] MEDS: 0.9 % SODIUM CHLORIDE 10 ML SYRINGE IV SCH ×4 (03:30→21:35)
[2020-05-10] MEDS: oxyCODONE/APAP 5/325MG TABLET PO PRN ×2 (03:30→21:27)
[2020-05-10] MEDS ORDERED: KETOROLAC 15 MG/ML VIAL IV ONE (08:18)
--- NOTE | 2020-05-10 08:18 | Internal Med Progress Note ---
SUBJECTIVE Subjective Patient information: Note initiated : 05/10/20 at 8:15 am Service Date, if different from initiated Date: [] Patient: Sandie Birch a 79 y/o M admitted on 05/08/20 for Fall from 20 feet. Chief Complaint: [] Interval history: History of present illness: Mr. 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 Work-up in the ED included head CT cervical spine CT chest abdomen pelvis. Only remarkable for fractures of the left fifth sixth and seventh ribs. He has pleuritic chest pain and is breathing shallow and because of the pain and shallow breaths he was hypoxic on room air. Case discussed with Dr. Cruz as well will follow. Dr. Cruz did suture up the laceration. 05/09 felling a bit better today. mild dyspnea, no diarrhea. 05/10 Pain better controlled. Is still desatting on room air. No other complaints. Review of Systems: denies headache/fever/chills/nausea/vomiting/chest or abdominal pain//diarrhea. Otherwise see above. Constitutional Vitals: Vital Signs Temp Pulse Resp BP Pulse Ox 98.8 F 93 H 18 130/77 93 05/10/20 06:51 05/10/20 06:51 05/10/20 06:51 05/10/20 06:51 05/10/20 06:51 Period Temp Pulse Resp BP Sys/Poe Pulse Ox Last 24 Hr 97.3 F-99.0 F 83-102 16-20 120-144/72-80 82-93 Intake and Output 05/09/20 05/10/20 05/10/20 21:59 05:59 13:59 Intake Total 480 50 Output Total 150 Balance 330 50 Weight 91.217 kg Intake & Output: Intake & Output 05/09/20 05/10/20 05/10/20 21:59 05:59 13:59 Intake Total 480 50 Output Total 150 Balance 330 50 Weight 91.217 kg Intake: Oral 480 50 Output: Void Amount 150 Other: Meal Dinner Percent of Meal Consumed 100% Feeding Ability Independent Urine Appearance Clear Urine Color Dark Yellow # Voids 1 Exam: General: Alert, Awake, No acute Distress Eyes/N/T: EOMI, Head/Neck: neck supple, CV: RRR, No murmurs, Pulm: Clear b/l, no wheezing/rhonchi/rales Abd: soft, nontender, +BS x4 Ext: no clubbing/cyanosis/edema Neuro: Alert, no focal deficits, moves all extremities Skin: warm/dry OBJ DATA Labs CBC & Chem 7: 05/09/20 05:30 05/09/20 05:30 Labs: Abnormal Lab Results 05/09/20 05/09/20 05/08/20 05:30 05:30 18:07 WBC 21.4 H RBC 4.06 L Hgb 12.2 L Hct 38.2 L MPV 11.8 H 11.6 H Neut % (Auto) 84.5 H Lymph % (Auto) 6.1 L Lymph # (Auto) 1.30 L [place] # (Auto) 1.98 H Lymphocytes % 14 L Absolute Neutrophils 18.05 H RBC Morphology Abnormal A Polychromasia Rare A RBC Fragments Rare A POC BUN Creatinine POC Creatinine Glucose 122 H POC Glucose AST 66 H Lactate Dehydrogenase 252 H TSH Ur Specific [place] Urine Protein Ur Leukocyte Esterase Urine RBC Urine WBC Urine Bacteria Urine Mucus 05/08/20 05/08/20 05/08/20 15:18 14:08 14:08 WBC RBC Hgb Hct MPV Neut % (Auto) Lymph % (Auto) Lymph # (Auto) [place] # (Auto) Lymphocytes % Absolute Neutrophils RBC Morphology Polychromasia RBC Fragments POC BUN 22 H Creatinine 1.5 H POC Creatinine 1.4 H Glucose 146 H POC Glucose 145 H AST Lactate Dehydrogenase TSH 6.44 H Ur Specific [place] 1.042 H Urine Protein 100 A Ur Leukocyte Esterase 75 A Urine RBC 6 H Urine WBC 32 H Urine Bacteria Few A Urine Mucus Few A 05/08/20 14:08 WBC RBC 4.47 L Hgb 13.4 L Hct MPV 11.6 H Neut % (Auto) Lymph % (Auto) Lymph # (Auto) [place] # (Auto) 0.97 H Lymphocytes % Absolute Neutrophils RBC Morphology Polychromasia RBC Fragments POC BUN Creatinine POC Creatinine Glucose POC Glucose AST Lactate Dehydrogenase TSH Ur Specific [place] Urine Protein Ur Leukocyte Esterase Urine RBC Urine WBC Urine Bacteria Urine Mucus Meds: Medications Acetaminophen (Tylenol) 650 mg PO Q6HP PRN PRN Reason: PAIN/FEVER > 101 Albuterol/Ipratropium (Duoneb) 3 ml NEB Q4HP PRN PRN Reason: Shortness Of Breath Ceftriaxone Sodium (Rocephin) 1 gm IV DAILY [facility] Last Admin: 05/09/20 09:12 Dose: 1 gm Documented by: Docusate Sodium (Colace) 100 mg PO BID [facility] Last Admin: 05/09/20 20:53 Dose: 100 mg Documented by: Potassium Chloride 40 meq/ (Dextrose) 520 mls @ 130 mls/hr IV UD PRN PRN Reason: Potassium < 3 Magnesium Sulfate (Magnesium Sulfate) 2 gm in 50 mls @ 50 mls/hr IV UD PRN PRN Reason: Magnesium </= 1.6 Ketorolac Tromethamine (Toradol) 15 mg IV Q8HP PRN PRN Reason: Per Pain Protocol Lactulose (Cephulac) 20 gm PO DAILYP PRN PRN Reason: Constipation Lidocaine (Lidoderm) 1 patch TOPICAL DAILY@1000 [facility] Last Admin: 05/09/20 09:22 Dose: 1 patch Documented by: Ondansetron HCl (Zofran) 4 mg IV Q4HP PRN PRN Reason: Nausea And Vomiting Oxycodone/Acetaminophen (Percocet 5-325 Mg) 1 tab PO Q4HP PRN PRN Reason: PAIN LEVEL 3-6 Last Admin: 05/10/20 03:30 Dose: 1 tab Documented by: Polyethylene Glycol (Miralax) 17 gm PO DAILYP PRN PRN Reason: Constipation Last Admin: 05/09/20 20:50 Dose: 17 gm Documented by: Potassium Chloride (Kdur) 40 meq PO UD PRN PRN Reason: Potssium is 3-3.5 Potassium Chloride (Kdur) 40 meq PO UD PRN PRN Reason: Potassium < 3 Senna (Senokot) 2 tab PO DAILYP PRN PRN Reason: Constipation Sodium Chloride (Saline Flush) 10 ml IV Q8 [facility] Last Admin: 05/10/20 04:33 Dose: Not Given Documented by: A/P Narrative A/P Narrative: A: *Trauma, fall off ladder: -CT head/chest/a/p no acute other than rib fx. 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 Suggest abdominal aortic ultrasound in one year." -ppx: SCD (hold chemical for now due to trauma) full code Time Spent With Patient Time: Total time spent is greater than 50% in coordination of care (as documented) at patient's floor/unit and/or counseling patient: QUALITY VTE Deep Vein Thrombosis/Pulmonary Embolism Present on Admission: No
--- NOTE | 2020-05-10 10:02 | Discharge Summary ---
Discharge Provider Provider Patient information: Note initiated : 05/10/20 at 10:01 am Service Date, if different from initiated Date: [] Patient: Sandie Birch 79 y/o M admitted on 05/08/20 for Fall from 20 feet. Chief Complaint: [] Date of admission: 05/08/20 17:11 Discharge date: 05/11/20 Primary care physician: Fede Guevara MD Consults: 05/08/20 Consult to Physician [CONS] Stat Comment: Consulting Provider: John Mendenhall Reason For Exam: Physician to Consult 05/08/20 16:07 Consult to Physician [CONS] Stat Comment: Consulting Provider: Rhonda Cruz Reason For Exam: Physician to Consult Discharge Meds Discharge Medications Home Medications ascorbic acid (vitamin C) 500 mg tablet 500 mg PO QDAY 11/04/15 [History Confirmed 05/08/20 Last Taken 05/08/20 09:00 500 mg.] aspirin 81 mg chewable tablet 81 mg PO QDAY 11/04/15 [History Confirmed 05/08/20 Last Taken 05/08/20 09:00 81 mg.] cholecalciferol (vitamin D3) 75 mcg (3,000 unit) tablet 3,000 unit PO QDAY 11/04/15 [History Confirmed 05/08/20 Last Taken 05/08/20 09:00 3000 units] multivitamin 1 tab PO QDAY 06/21/18 [History Confirmed 05/08/20 Last Taken 05/08/20 09:00 1 tab] vitamins A,C,N-chuk-iudxrw 14,320 unit-226 mg-200 unit capsule 1 cap PO QDAY cap 05/16/19 [History Confirmed 05/08/20 Last Taken 05/08/20 09:00 1 cap] hydrochlorothiazide 25 mg tablet 25 mg PO QDAY #90 tab 11/21/19 [Rx Confirmed 05/08/20 Last Taken 05/08/20 09:00 25 mg.] levothyroxine 100 mcg tablet 100 mcg PO QDAY #90 tab 11/21/19 [Rx Confirmed 05/08/20 Last Taken 05/08/20] sildenafil 100 mg tablet 100 mg PO QDAY PRN #30 tab 02/05/20 [Rx Confirmed Last Taken Unknown] pravastatin 40 mg tablet 40 mg PO QHS #90 tab 02/28/20 [Rx Confirmed 05/08/20 Last Taken 05/07/20 21:00 40 mg.] ciprofloxacin HCl 500 mg PO Q12H #8 tab 05/10/20 [Rx Last Taken Unknown] oxycodone-acetaminophen 1 tab PO Q4HP PRN #20 tab 05/10/20 [Rx Last Taken Unknown] albuterol sulfate 2 puff INHALATION Q6H PRN #6.7 g 05/11/20 [Rx Last Taken Unknown] COURSE Hospital Course Hospital course: History of present illness: Mr. 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 Work-up in the ED included head CT cervical spine CT chest abdomen pelvis. Only remarkable for fractures of the left fifth sixth and seventh ribs. He has pleuritic chest pain and is breathing shallow and because of the pain and shallow breaths he was hypoxic on room air. Case discussed with Dr. Cruz as well will follow. Dr. Cruz did suture up the laceration. 05/09 felling a bit better today. mild dyspnea, no diarrhea. 05/10 Pain better controlled. Is still desatting on room air. No other complaints. 05/11 Continues to feel well. Patient says he typically runs quite low on oxygen at home. And this is likely related to undiagnosed COPD. RT to qualify for home oxygen today. Follow-up with PCP and will refer to pulmonology. A: *Trauma, fall off ladder: -CT head/chest/a/p no acute other than rib fx. 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 *HTN/HLD: *Hypothyroidism: *UTI (e.coli): Discharge diagnosis: Trauma fall off ladder with left-sided broken ribs w/small effusion hypoxia Secondary discharge diagnosis: Acute on chronic kidney disease hypertension hypothyroidism urinary tract infection Time Spent with Patient Time attestation: Total time spent providing and/or coordinating discharge services: Time spent: Greater than 30 minutes EXAM Constitutional Vitals: Temp Pulse Resp BP Pulse Ox 98.8 F 93 H 18 130/77 93 05/10/20 06:51 05/10/20 06:51 05/10/20 06:51 05/10/20 06:51 05/10/20 06:51 Discharge Data Data Completed and Pending Labs on day of discharge: Labs from last 24 hours 05/09/20 11:04 PT 13.7 INR 1.0 APTT 30.8 Preliminary micro results at discharge 05/08/20 15:18 Urine Culture - Preliminary Urine - Clean Void Mid-Stream Gram negative bacillus Discharge Plan Patient/Caregiver Discharge Instructions Activity: increase activity as tolerated Diet: Regular Diet Instructions: Laceration (DC), Rib Fracture (DC) Activity Restrictions/Additional Instructions: Referral to see pulmonology and 5 to 14 days for COPD evaluation. Prescriptions: New oxycodone-acetaminophen 5-325 mg Tablet 1 tab PO Q4HP PRN (Reason: Pain Level 3-6) Qty: 20 RF: 0 ciprofloxacin HCl 500 mg tablet 500 mg PO Q12H Qty: 8 RF: 0 albuterol sulfate 90 mcg/actuation HFA aerosol inhaler 2 puff INHALATION Q6H PRN (Reason: shortness of breath or wheezing) Qty: 6.7 RF: 0 Continued hydrochlorothiazide 25 mg tablet 25 mg PO QDAY Qty: 90 RF: 1 levothyroxine 100 mcg tablet 100 mcg PO QDAY Qty: 90 RF: 1 pravastatin [Pravachol] 40 mg tablet 40 mg PO QHS Qty: 90 RF: 0 ascorbic acid (vitamin C) 500 mg tablet 500 mg PO QDAY RF: 0 aspirin 81 mg tablet,chewable 81 mg PO QDAY RF: 0 cholecalciferol (vitamin D3) 3,000 unit tablet 3,000 unit PO QDAY RF: 0 PreserVision AREDS 14,320-226-200 eowv-hc-yvez capsule 1 cap PO QDAY RF: 0 multivitamin tablet 1 tab PO QDAY RF: 0 sildenafil 100 mg tablet 100 mg PO QDAY PRN (Reason: sexual activity) Qty: 30 RF: 0 Follow Up Plan Follow up with: Fede Guevara MD [Primary Care Provider] - Patient Disposition: Home, Self-Care Prognosis: Fair Overall status at discharge: patient is progressing back to baseline Discharge Orders: Discharge Order (Routine); Ordered 05/11/20 [facility]/Pulmonary Embolism Present on Admission: No
[2020-05-10] MEDS: cefTRIAXone 1 GM VIAL IV SCH (11:06)
[2020-05-10] MEDS: DOCUSATE SODIUM 100 MG CAPSULE PO SCH ×2 (11:07→21:27)
[2020-05-10] MEDS: LIDOCAINE PATCH TOPICAL SCH (11:08)
--- NOTE | 2020-05-10 13:44 | XRay Report ---
CLINICAL INFORMATION: f/u abnormal chest, hypoxia after trauma COMPARISON: 05/09/2020 FINDINGS: Heart size, mediastinum and pulmonary vessels are normal. Mild subsegmental atelectasis left base is unchanged. Very minor atelectasis right base. No definite effusion. Acute mildly displaced lower left-sided rib fractures seen - as before IMPRESSION: Mild subsegmental atelectasis left base and minor atelectasis right base - no change Interpreted and Authenticated by: Josiah Lucas 05/10/20
[2020-05-10] MEDS: POLYETHYLENE GLYCOL 3350 17 GM PACKET PO PRN (21:28)
[2020-05-11] MEDS: oxyCODONE/APAP 5/325MG TABLET PO PRN (04:31)
[2020-05-11] MEDS: 0.9 % SODIUM CHLORIDE 10 ML SYRINGE IV SCH (04:31)
[2020-05-11] MEDS: DOCUSATE SODIUM 100 MG CAPSULE PO SCH (09:34)
[2020-05-11] MEDS: cefTRIAXone 1 GM VIAL IV SCH (09:34)
[2020-05-11] MEDS: LIDOCAINE PATCH TOPICAL SCH (09:35)
== END 2020-05-11 10:51 | disposition home or self-care (01) | DRG 183 ==
LOC: ED 13:37 → MEDSUR 17:11
PROVIDERS: ADMIT Internal Medicine; ATTEND Internal Medicine